=== PATIENT | female | born 1965 | race Caucasian/White ===

== ENCOUNTER 2018-06-17 18:49 | Emergency (ER) | payer OTHER ==
[~2018-06-17] VITALS: Ht 170.2 cm; Wt 56.7 kg
[2018-06-17] MEDS ORDERED: CIPROFLOXIN HC2.5 M1 OPHTHALMIC (19:41)
[2018-06-17 19:56] VITALS: BP 165/60
== END 2018-06-17 19:58 | disposition home or self-care (01) ==
LOC: M.ERS 18:49
DX: S05.01XA Injury of conjunctiva and corneal abrasion without foreign body, right eye, initial encounter (principal); X58.XXXA Exposure to other specified factors, initial encounter; Y93.89 Activity, other specified; Y92.89 Other specified places as the place of occurrence of the external cause; Y99.8 Other external cause status